=== PATIENT | female | born 1935 | race Hispanic/Latino ===

== ENCOUNTER 2016-06-28 09:33 | Emergency (ER) | payer MEDICARE, OTHER ==
[2016-06-28 10:32] LABS: ALT (SGPT) 14 U/L (0-55); AST (SGOT) 24 U/L (5-34); Albumin 4.2 g/dL (3.4-4.8); Alkaline Phosphatase 119 U/L (40-150); Anion Gap 15 mmol/L (10-20); BUN (Urea Nitrogen) 11 mg/dL (9.8-20.1); Bilirubin, Total 1.4 mg/dL (0.2-1.2); CK (CPK) 89 U/L (29-168); Calc. Creatinine Clearance 0 mL/min (70-130); Calcium 8.8 mg/dL (7.8-10.44); Carbon Dioxide 22 mmol/L (23-31); Chloride 104 mmol/L (98-107); Estimated GFR-MDRD 83; Globulin 2.9 g/dL (2.4-3.5); Glucose 120 mg/dL (83-110); Potassium 3.8 mmol/L (3.5-5.1); Protein, Total 7.1 g/dL (5.8-8.1); Sodium 137 mmol/L (136-145)
[2016-06-28 10:33] LABS: CKMB 1.6 ng/mL (0-6.6); Troponin I 0.026 ng/mL (< 0.028)
[2016-06-28 10:34] LABS: Band 1 % (5-11); Eosinophils 1 % (0-10); Hemoglobin 14.5 g/dL (12.0-16.0); Lymphocytes 4 % (21-51); MDiff Complete? YES; Mean Corpuscular HGB CONC 31.9 g/dL (32.0-36.0); Mean Corpuscular Hemoglobin 29.2 pg (27.0-31.0); Mean Corpuscular Volume 91.5 fl (81.0-99.0); Mean Platelet Volume 8.4 fL (7.4-10.4); Monocytes 3 % (0-10); Neutrophil 91 % (42-75); PLT Morphology Comment Appears Adequate; Platelet Count 232 thou/uL (130-400); RBC Distribution Width 12.9 % (11.5-14.5); RBC Morphology Normal; Red Blood Cell (RBC) Count 4.98 mill/uL (4.20-5.40)
[2016-06-28 10:49] LABS: Bilirubin Negative (Negative); Blood, Urine Trace (Negative); Clarity Clear (Clear); Glucose, Urine (Dipstick) Negative (Negative); Leukocyte Trace (Negative); Nitrite Negative (Negative); Protein, Urine (Dipstick) Trace mg/dL (Neg-Trace); pH, Urine 7.5 (5.0-9.0)
[2016-06-28 10:56] LABS: Bacteria/HPF 1+ HPF (None Seen); Other Microscopic Description NO; RBC/HPF 0-3 HPF (0-3)
--- NOTE | 2016-06-28 11:36 | RAD ---
PORTABLE CHEST: Date: 06-28-16 Provided Clinical History: Chest pain. FINDINGS: Comparison 01-11-16. Evaluate is limited by patient body habitus. The cardiac silhouette appears enl arged. No focal consolidation, pleural fluid, or pneumothorax apparent. Surgical clips project in the left axillary region. IMPRESSION: Cardiomegaly without evidence for acute cardiopulmonary process. POS: [facility]
[2016-06-28] MEDS ORDERED: Cipro 250 MG TAB ONE (12:02)
== END 2016-06-28 12:20 | disposition home or self-care (01) ==
LOC: NAV ERS 09:33
DX: N39.0 Urinary tract infection, site not specified (principal); K43.9 Ventral hernia without obstruction or gangrene; E78.5 Hyperlipidemia, unspecified; E78.00 Pure hypercholesterolemia, unspecified; I10 Essential (primary) hypertension; Z79.891 Long term (current) use of opiate analgesic; Z79.899 Other long term (current) drug therapy
CPT/HCPCS: 71010; 80053; 81003; 81015; 82550; 82553; 84484; 85025; 87086; 93005

== ENCOUNTER 2016-08-19 12:09 | Emergency (ER) | payer MEDICARE, OTHER ==
--- NOTE | 2016-08-19 14:47 | CT ---
CT LUMBAR SPINE NONCONTRAST: HISTORY: Low back pain. FINDINGS: Vertebral body heights are maintained. There is prominent leftward convex rotatory scoliotic curvat ure. Disk space narrowing and gas-disk phenomenon is most pronounced at the L3-4 level. Minimal de generative spondylolisthesis is present at the lumbosacral junction. There is prominent osteophytos is throughout the vertebral bodies and facets. Mild chronic superior end plate compression at the L 1 level is apparent. Calcification is present within the arterial structures. IMPRESSION: 1. Prominent lumbar spondylosis. No evidence of compression fracture. 2. Atherosclerosis. POS: [facility]
--- NOTE | 2016-08-19 14:49 | CT ---
CT PELVIS: DATE: 08/19/16. PROVIDED CLINICAL HISTORY: Low back pain. TECHNIQUE: CT data was acquired through the pelvis without contrast per bony pelvis protocol. FINDINGS: There is no evidence for fracture. Degenerative changes involve the symphysis pubis and lower lumba r spine. There are multiple ventral abdominal hernias present, including a moderate to large-sized ventral abdominal hernia to the right of midline that contains peritoneal fat and nondilated small b owel. Scattered colonic diverticula are seen without CT evidence for diverticulitis. Atheroscleros is is noted. Degenerative changes involve the sacroiliac joints. IMPRESSION: No evidence for fracture. Chronic findings as above. POS: [facility]
== END 2016-08-19 13:25 | disposition home or self-care (01) ==
LOC: NAV ERS 12:09
DX: M54.5 Low back pain (principal); E78.5 Hyperlipidemia, unspecified; E78.00 Pure hypercholesterolemia, unspecified; F41.9 Anxiety disorder, unspecified; Z79.899 Other long term (current) drug therapy
CPT/HCPCS: 72131; 72192

== ENCOUNTER 2018-06-22 19:23 | Emergency (ER) | payer MEDICARE, OTHER ==
[~2018-06-22 19:23] MED LIST: Iopamidol 370 76% 100 ML VIAL ONE
[2018-06-22] MEDS ORDERED: Sodium Chloride 0.9% 1,000 ML ONE (19:35)
[2018-06-22] MEDS ORDERED: Ondansetron PF 4 MG/2 ML Vial ONE (19:35)
[2018-06-22 20:19] LABS: #Basophils 0.1 thou/uL (0.0-0.2); #Eosinphils 0.1 thou/uL (0.0-0.7); #Lymphocytes 1.9 thou/uL (1.20-3.40); #Monocytes 0.7 thou/uL (0.11-0.59); %Basophils 0.9 % (0.0-1.0); %Lymphocytes 12.5 % (21.0-51.0); %Monocytes 4.7 % (0.0-10.0); %Neutrophils 80.9 % (42.0-75.0); ALT (SGPT) 18 U/L (8-55); AST (SGOT) 30 U/L (5-34); Albumin 4.5 g/dL (3.4-4.8); Alkaline Phosphatase 123 U/L (40-150); Anion Gap 18 mmol/L (10-20); BUN (Urea Nitrogen) 16 mg/dL (9.8-20.1); CK (CPK) 199 U/L (29-168); Calc. Creatinine Clearance 0 mL/min (70-130); Calcium 9.9 mg/dL (7.8-10.44); Carbon Dioxide 24 mmol/L (23-31); Chloride 103 mmol/L (98-107); Estimated GFR-MDRD 71; Globulin 3.2 g/dL (2.4-3.5); Glucose 111 mg/dL (83-110); Hemoglobin 15.5 g/dL (12.0-16.0); Lipase 20 U/L (8-78); Mean Corpuscular HGB CONC 31.2 g/dL (32.0-36.0); Mean Platelet Volume 8.9 fL (7.4-10.4); Platelet Count 221 thou/uL (130-400); Potassium 3.7 mmol/L (3.5-5.1); Protein, Total 7.7 g/dL (6.0-8.3); RBC Distribution Width 13.3 % (11.5-14.5); Red Blood Cell (RBC) Count 5.32 mill/uL (4.20-5.40); Sodium 141 mmol/L (136-145); White Blood Cell (WBC) Count 14.9 thou/uL (4.8-10.8)
--- NOTE | 2018-06-22 20:21 | RAD ---
ABDOMEN TWO VIEWS CHEST ONE VIEW 06/22/18 HISTORY: Hernia site pain, nausea and vomiting. FINDINGS: CHEST ONE VIEW: No significant acute intrathoracic disease. Prominent atherosclerotic ectatic changes of the aorta. ABDOMEN TWO VIEWS: There is some gas and fecal material in the colon with some minimally dilated loops of small bowel pr imarily in the left abdomen with a few air fluid levels. Evidence for low grade partial small bowel o bstruction versus some focal ileus. Levoscoliosis of the lumbar spine. No free intraperitoneal air. N o overt calculus. IMPRESSION: Some minimally dilated small bowel loops in the left mid abdomen with a few air fluid levels, nonspec ific. Scattered gas and fecal material in the colon. No overt calculus or free intraperitoneal air. E xtensive atherosclerosis of the aorta. POS: [facility]
[2018-06-22 20:54] LABS: Bilirubin Negative (Negative); Blood, Urine Trace (Negative); Clarity Clear (Clear); Glucose, Urine (Dipstick) Negative (Negative); Leukocyte Negative (Negative); Nitrite Negative (Negative); Protein, Urine (Dipstick) Trace mg/dL (Neg-Trace); Urobilinogen 0.2 mg/dL (0.2-1.0)
[2018-06-22 20:55] LABS: Bacteria/HPF None Seen HPF (None Seen); Squamous Epithelial 0-3 HPF (0-3); WBC/HPF None Seen HPF (0-3)
--- NOTE | 2018-06-23 07:44 | CT ---
CONTRAST ENHANCED CT IMAGES OF ABDOMEN AND PELVIS: Date: 06/22/18 HISTORY: Nausea and vomiting. Hernia. FINDINGS: Contrast enhanced CT images of the abdomen and pelvis obtained after administration of IV and oral co ntrast. The lung bases are unremarkable. There is a large right anterior and paracentral abdominal wall defect with extensive intraperitoneal herniation of bowel into the anterior abdominal wall hernia. Some loops of small bowel appear to be d ilated. There appear to be two different portions of bowel which are herniated through the defect, on e more inferiorly and medially appears to be partially obstructed and thickened, while more normal ca liber additional area is seen to the right and slightly superior. Contrast does pass through the enti re small bowel into the colon suggesting that this is not a high grade blockage. Surgical consultatio n may be of use. The liver and spleen are unremarkable. The gallbladder has been surgically removed. The pancreas is u nremarkable. Adrenal glands are unremarkable. The kidneys are unremarkable. No evidence of periaortic lymphadenopathy seen. A large sliding-type hiatal hernia is present. Multilevel lumbar degenerative change is seen. Descending and sigmoid colonic diverticulosis is present. IMPRESSION: Right mid and paracentral anterior abdominal wall hernia with two separate areas of bowel herniation. Surgical consultation is recommended. POS: [facility]
== END 2018-06-23 01:08 | disposition short-term general hospital (02) ==
LOC: NAV ERS 19:23
DX: K43.9 Ventral hernia without obstruction or gangrene (principal); E78.5 Hyperlipidemia, unspecified; F41.9 Anxiety disorder, unspecified; Z79.899 Other long term (current) drug therapy
CPT/HCPCS: 74022; 74177; 80053; 81003; 81015; 82550; 83690; 84484; 85025; 93005; 96361; 96374; J2405; J7050; Q9967

== ENCOUNTER 2022-06-12 09:06 | Emergency (ER) | payer MEDICAID, MEDICARE, OTHER | END 2022-06-12 10:05 | disposition home or self-care (01) | LOC: NAV ERS 09:06 | DX: M62.830 Muscle spasm of back (principal); R21 Rash and other nonspecific skin eruption; E78.00 Pure hypercholesterolemia, unspecified; I10 Essential (primary) hypertension; Z79.899 Other long term (current) drug therapy | CPT/HCPCS: 99283 ==